=== PATIENT | female | born 1960 | race Caucasian/White ===

== ENCOUNTER 2021-02-28 12:09 | Inpatient (IN) | payer MEDICARE ==
[~2021-02-28] VITALS: Ht 157.5 cm; Wt 54.0 kg
[2021-02-28] VITALS (17 sets, daily range): BP systolic 120–191; BP diastolic 56–77
[2021-02-28 12:30] LABS: BASOPHILS % (AUTO) 0.2 % (0.0-5.0); HEMATOCRIT 27.8 % (36-48); LYMPHOCYTES % (AUTO) 9.3 % (21.0-51.0); MEAN CORPUSCULAR HEMOGLOBIN 37.2 pg (27.0-33.0); MEAN CORPUSCULAR HGB CONC 33.8 g/dL (32.0-36.0); MEAN CORPUSCULAR VOLUME 109.9 fL (79-99); MONOCYTES % (AUTO) 9.3 % (3.0-13.0); NEUTROPHILS % (AUTO) 80.6 % (40.0-77.0); PLATELET COUNT (AUTO) 76 K/uL (130-400); RED BLOOD CELL COUNT(AUTO) 2.53 MIL/uL (4.00-5.50); RED CELL DISTRIBUTION WIDTH 11.9 % (11.0-15.5); WHITE BLOOD COUNT (AUTO) 8.5 K/uL (4.8-10.8)
[2021-02-28] MEDS ORDERED: MIDAZOLAM 50MG-0.9% NS 50ML 50 ML IV SCH (12:30)
[2021-02-28] MEDS ORDERED: MIDAZOLAM 100MG-0.9% NS 100ML 100 ML IV SCH (12:30)
[2021-02-28] MEDS ORDERED: FENTANYL 2500MCG+NS 250ML 250 ML IV SCH (12:30)
[2021-02-28] MEDS ORDERED: FENTANYL 1000MCG+NS 100ML 100 ML IV SCH (12:30)
[2021-02-28 12:48] LABS: CREATININE 1.3 mg/dL (0.5-1.5); POTASSIUM 3.5 mmol/L (3.5-5.1)
[2021-02-28 12:52] LABS: ALBUMIN 3.8 g/dL (3.5-5.0)
[2021-02-28] MEDS ORDERED: OMEP40CA21 PO (12:55)
[2021-02-28] MEDS ORDERED: METH-812 PO (12:55)
[2021-02-28] MEDS ORDERED: MONT-39 PO (12:55)
[2021-02-28] MEDS ORDERED: TRAZ150T79 PO (12:55)
[2021-02-28] MEDS ORDERED: LAMO200T10 PO (12:55)
[2021-02-28] MEDS ORDERED: GABA300C PO (12:55)
[2021-02-28] MEDS ORDERED: DILT180C86 PO (12:55)
[2021-02-28] MEDS ORDERED: HYDR-4068 PO (12:55)
[2021-02-28] MEDS ORDERED: LEVO88CA4 PO (12:55)
[2021-02-28 12:59] LABS: ABG BASE EXCESS -0.7 mmol/L (-2.0-3.0); ABG OXYGEN SATURATION 99.8 % (95.0-99.0); ABG PCO2 31 mmHg (32-45)
[2021-02-28 13:46] LABS: ERYTHROCYTE SEDIMENTATION RATE 41 MM/HR (0-30)
[2021-02-28 13:55] LABS: BILIRUBIN,DIRECT 0.9 mg/dL (0.0-0.3); BILIRUBIN,TOTAL 1.8 mg/dL (0.2-1.0); CRP QUANTITATIVE 66.9 mg/L (0.00-9.0); TOTAL PROTEIN, SERUM 7.8 g/dL (6.0-8.3)
[2021-02-28] MEDS ORDERED: 0.9%NACL 1000ML 1,000 ML IV ONE ×3 (14:00→16:30)
[2021-02-28] MEDS ORDERED: NOREPINEPHRIN 4MG/NS 250ML 250 ML IV SCH (14:00)
[2021-02-28] MEDS ORDERED: IOHEXOL-350 75 ML VIAL IV ONE (14:35)
[2021-02-28] MEDS ORDERED: MANNITOL 25% 50ML VIAL ONE ×2 (16:18→16:22)
[2021-02-28] MEDS ORDERED: MANNITOL 25% 50ML VIAL IV SCH (16:30)
[2021-02-28] MEDS ORDERED: CEFAZOLIN SODIUM 1 GM VIAL ONE ×3 (16:43→17:55)
[2021-02-28 16:44] LABS: INR 1.17 (0.85-1.15); PROTHROMBIN TIME 12.6 SEC (9.6-11.6)
[2021-02-28] MEDS ORDERED: 0.9%NACL 100ML 100 ML ONE (16:44)
[2021-02-28 16:45] LABS: PARTIAL THROMBOPLASTIN TIME 21.7 SEC (26.3-35.5)
[2021-02-28] MEDS ORDERED: THROMBIN-JMI 20000 UNIT KIT TP ONE (16:45)
[2021-02-28] MEDS ORDERED: ROCURONIUM 10MG/1ML SYR 10 MG/ML ML ONE ×2 (16:48→17:17)
[2021-02-28] MEDS ORDERED: MIDAZOLAM HCL 1 MG/ML 2ML VIAL ONE (16:48)
[2021-02-28] MEDS ORDERED: PROPOFOL 10 MG/ML 20ML VIAL IV ONE (16:48)
[2021-02-28] MEDS ORDERED: BUPIVACAINE/EPI/PF 0.25% 30ML VIAL IJ ONE (17:14)
[2021-02-28] MEDS ORDERED: DEXAMETHASONE SOD PHOSPHATE 10MG/ML 1ML VIAL ONE (17:18)
[2021-02-28] MEDS ORDERED: ALBUMIN (HUMAN) 25% 150 ML IV ONE (17:18)
[2021-02-28] MEDS ORDERED: FENTANYL CITRATE PF 50 MCG/1 ML 2ML VIAL ONE (17:23)
[2021-02-28] MEDS ORDERED: MANNITOL 20% 500ML BAG 500 ML IV ONE (17:54)
[2021-02-28] MEDS ORDERED: FAMOTIDINE 20MG VIAL IV SCH (19:21)
[2021-02-28] MEDS ORDERED: ONDANSETRON 4MG INJ IV PRN (19:30)
[2021-02-28] MEDS ORDERED: PHARMACY COMMUNICATION MISC SCH (20:30)
[2021-02-28] MEDS ORDERED: ACETAMINOPHEN 325 MG TAB PO PRN ×2 (21:00)
[2021-02-28] MEDS ORDERED: COMPOUND IV MISC 1 EACH IVSOLN MISC PRN (21:00)
[2021-02-28] MEDS ORDERED: SODIUM CHLORIDE 3% 500 ML IV ONE (21:00)
[2021-02-28] MEDS: LAMOTRIGINE 25 MG TAB PO SCH (22:22)
[2021-02-28] MEDS: LEVETIRACETAM 500 MG in 0.9%NACL 100ML 100 ML IV SCH (22:22)
[2021-02-28] MEDS: INSULIN HUMULIN R 100 UNIT/ML 3ML SQ SCH (23:12)
[2021-03-01] VITALS (78 sets, daily range): BP systolic 80–163; BP diastolic 44–101
[2021-03-01 01:06] LABS: MAGNESIUM 1.7 mg/dL (1.80-2.40)
[2021-03-01] MEDS ORDERED: PHENYLEPHRINE HCL 10 MG/ML 1ML VIAL IV ONE (02:51)
[2021-03-01] MEDS ORDERED: NOREPINEPHRIN 4MG/NS 250ML 250 ML IV ONE ×2 (02:58→21:01)
[2021-03-01] MEDS ORDERED: 0.9%NACL 1000ML 1,000 ML IV SCH (03:00)
[2021-03-01] MEDS ORDERED: VASOPRESSIN 40 UNITS in 0.9%NACL 50ML 40 ML IV SCH (03:00)
[2021-03-01] MEDS ORDERED: PHENYLEPHRINE HCL 50 MG in 0.9% NACL 250ML 250 ML IV PRN (03:00)
[2021-03-01] MEDS: 0.9%NACL 1000ML 1,000 ML IV SCH ×2 (03:00→15:48)
[2021-03-01 03:33] LABS: BASOPHILS % (AUTO) 0.1 % (0.0-5.0); EOSINOPHILS % (AUTO) 1.6 % (0.0-8.0); HEMATOCRIT 21.4 % (36-48); LYMPHOCYTES % (AUTO) 4.6 % (21.0-51.0); MEAN CORPUSCULAR HEMOGLOBIN 36.6 pg (27.0-33.0); MEAN CORPUSCULAR HGB CONC 33.2 g/dL (32.0-36.0); MEAN CORPUSCULAR VOLUME 110.3 fL (79-99); MONOCYTES % (AUTO) 5.8 % (3.0-13.0); NEUTROPHILS % (AUTO) 87.5 % (40.0-77.0); PLATELET COUNT (AUTO) 107 K/uL (130-400); RED BLOOD CELL COUNT(AUTO) 1.94 MIL/uL (4.00-5.50); RED CELL DISTRIBUTION WIDTH 12.3 % (11.0-15.5)
[2021-03-01 03:42] LABS: INR 1.17 (0.85-1.15); PROTHROMBIN TIME 12.6 SEC (9.6-11.6)
[2021-03-01 03:53] LABS: ALBUMIN 3.6 g/dL (3.5-5.0); BILIRUBIN,TOTAL 1.5 mg/dL (0.2-1.0); CREATININE 1.4 mg/dL (0.5-1.5); MAGNESIUM 2.8 mg/dL (1.80-2.40); POTASSIUM 3.9 mmol/L (3.5-5.1); THYROID STIMULATING HORMONE 1.15 uIU/mL (0.36-3.74); TOTAL PROTEIN, SERUM 6.8 g/dL (6.0-8.3)
[2021-03-01] MEDS ORDERED: 0.9%NACL 100ML 100 ML ONE (04:10)
[2021-03-01] MEDS: LEVETIRACETAM 500 MG in 0.9%NACL 100ML 100 ML IV SCH ×3 (05:14→21:58)
[2021-03-01] MEDS: INSULIN HUMULIN R 100 UNIT/ML 3ML SQ SCH ×3 (05:28→18:00)
[2021-03-01] MEDS ORDERED: LEVOTHYROXINE 88 MCG TABLET PO SCH (06:30)
[2021-03-01 09:12] LABS: HEMATOCRIT 26.7 % (36-48)
[2021-03-01] MEDS: LAMOTRIGINE 25 MG TAB PO SCH ×2 (09:34→21:58)
[2021-03-01] MEDS: PANTOPRAZOLE 40 MG/VIAL IVP SCH (09:34)
[2021-03-01] MEDS ORDERED: DEXTROSE 5%-WATER 1,000 ML IV ONE (20:58)
[2021-03-01] MEDS: DEXTROSE 5%-WATER 1,000 ML IV SCH (21:55)
[2021-03-02] VITALS (115 sets, daily range): BP systolic 86–169; BP diastolic 42–85
[2021-03-02] MEDS ORDERED: NOREPINEPHRIN 4MG/NS 250ML 250 ML IV ONE ×2 (02:02→19:24)
[2021-03-02 04:28] LABS: BILIRUBIN,TOTAL 1.2 mg/dL (0.2-1.0); CREATININE 1.3 mg/dL (0.5-1.5); POTASSIUM 3.6 mmol/L (3.5-5.1); TOTAL PROTEIN, SERUM 6.5 g/dL (6.0-8.3)
[2021-03-02 04:30] LABS: BASOPHILS % (AUTO) 0.3 % (0.0-5.0); EOSINOPHILS % (AUTO) 0.2 % (0.0-8.0); HEMATOCRIT 25.9 % (36-48); LYMPHOCYTES % (AUTO) 25.5 % (21.0-51.0); MEAN CORPUSCULAR HEMOGLOBIN 34.2 pg (27.0-33.0); MEAN CORPUSCULAR HGB CONC 31.7 g/dL (32.0-36.0); MEAN CORPUSCULAR VOLUME 107.9 fL (79-99); MONOCYTES % (AUTO) 8.4 % (3.0-13.0); NEUTROPHILS % (AUTO) 63.5 % (40.0-77.0); PLATELET COUNT (AUTO) 122 K/uL (130-400); WHITE BLOOD COUNT (AUTO) 9.2 K/uL (4.8-10.8)
[2021-03-02] MEDS: INSULIN HUMULIN R 100 UNIT/ML 3ML SQ SCH ×4 (05:08→15:50)
[2021-03-02] MEDS: LEVOTHYROXINE 100MCG VIAL IV SCH (06:17)
[2021-03-02] MEDS: DEXTROSE 5%-WATER 1,000 ML IV SCH ×3 (06:41→23:05)
[2021-03-02] MEDS: LAMOTRIGINE 25 MG TAB PO SCH ×2 (08:30→20:30)
[2021-03-02] MEDS: PANTOPRAZOLE 40 MG/VIAL IVP SCH (09:53)
[2021-03-02] MEDS: FOLIC ACID 5 MG/ML VIAL IV SCH (09:53)
[2021-03-02] MEDS: LEVETIRACETAM 500 MG in 0.9%NACL 100ML 100 ML IV SCH ×2 (09:53→22:10)
[2021-03-02] MEDS: THIAMINE HCL 100 MG/ML 2ML VIAL IVP SCH ×2 (09:53→21:51)
[2021-03-02 18:39] LABS: BASOPHILS % (AUTO) 0.5 % (0.0-5.0); EOSINOPHILS % (AUTO) 2.2 % (0.0-8.0); HEMATOCRIT 22.8 % (36-48); LYMPHOCYTES % (AUTO) 41.7 % (21.0-51.0); MEAN CORPUSCULAR HEMOGLOBIN 33.2 pg (27.0-33.0); MEAN CORPUSCULAR HGB CONC 31.1 g/dL (32.0-36.0); MEAN CORPUSCULAR VOLUME 106.5 fL (79-99); MONOCYTES % (AUTO) 7.1 % (3.0-13.0); NEUTROPHILS % (AUTO) 45.6 % (40.0-77.0); PLATELET COUNT (AUTO) 86 K/uL (130-400); RED BLOOD CELL COUNT(AUTO) 2.14 MIL/uL (4.00-5.50); WHITE BLOOD COUNT (AUTO) 7.6 K/uL (4.8-10.8)
[2021-03-02 18:53] LABS: INR 1.19 (0.85-1.15); PROTHROMBIN TIME 12.8 SEC (9.6-11.6)
[2021-03-02 18:55] LABS: HEMOGLOBIN A1C 4.7 % (4.0-6.0)
[2021-03-02 19:02] LABS: ALBUMIN 2.6 g/dL (3.5-5.0); BILIRUBIN,DIRECT 0.7 mg/dL (0.0-0.3); BILIRUBIN,TOTAL 1.2 mg/dL (0.2-1.0); CREATININE 1.1 mg/dL (0.5-1.5); MAGNESIUM 1.8 mg/dL (1.80-2.40); PHOSPHORUS 0.9 mg/dL (2.5-4.9); TOTAL PROTEIN, SERUM 5.8 g/dL (6.0-8.3)
[2021-03-02 19:07] LABS: POTASSIUM 2.8 mmol/L (3.5-5.1)
[2021-03-02 19:20] LABS: APPEARANCE,URINE Clear (CLEAR); BILIRUBIN,URINE Negative (NEGATIVE); COLOR,URINE Dark Yellow (YELLOW); GLUCOSE, URINE (UA) Negative (NEGATIVE); KETONES,URINE Negative (NEGATIVE); LEUKOCYTE ESTERASE ,URINE Negative (NEGATIVE); NITRATE,URINE Negative (NEGATIVE); OCCULT BLOOD,URINE Negative (NEGATIVE); PROTEIN,URINE POS 1+ mg/dL (NEGATIVE)
[2021-03-02] MEDS ORDERED: VANCOMYCIN 1G VIAL IVPB SCH (19:30)
[2021-03-02 19:42] LABS: BACTERIA,URINE Rare /HPF (None Seen); MUCUS,URINE Rare LPF (None Seen); SQUAMOUS EPITHELIAL CELL,UR Rare /HPF (0-2); WBC,URINE 0-1 /HPF (0-1)
[2021-03-02 20:08] LABS: ABG BASE EXCESS 3.9 mmol/L (-2.0-3.0); ABG HCO3 27.2 mmol/L (21.0-28.0); ABG OXYGEN SATURATION 99.9 % (95.0-99.0); ABG PCO2 37 mmHg (32-45)
[2021-03-02] MEDS ORDERED: POTASSIUM CHLORIDE 20MEQ/100ML 100 ML IV ONE (21:03)
[2021-03-02] MEDS ORDERED: LIDOCAINE HCL-MPF 1% 2ML VIAL IV PRN (21:30)
[2021-03-02] MEDS: CEFEPIME HCL 2 GM VIAL IVP SCH (21:50)
[2021-03-02] MEDS: VANCOMYCIN KIT 1 GM/250 ML IV.KIT IV SCH (21:50)
[2021-03-02] MEDS: METRONIDAZOLE 500 MG TABLET PO SCH (21:51)
[2021-03-02] MEDS ORDERED: METRONIDAZOLE 500MG/100ML BAG 100 ML IVPB SCH (22:00)
[2021-03-02] MEDS: POTASSIUM CHLORIDE 20MEQ/100ML 100 ML IV PRN (22:31)
[2021-03-03] VITALS (139 sets, daily range): BP systolic 71–207; BP diastolic 37–117
[2021-03-03] MEDS: INSULIN HUMULIN R 100 UNIT/ML 3ML SQ SCH ×4 (00:08→19:00)
[2021-03-03 00:14] LABS: BASOPHILS % (AUTO) 0.6 % (0.0-5.0); EOSINOPHILS % (AUTO) 2.2 % (0.0-8.0); LYMPHOCYTES % (AUTO) 41.8 % (21.0-51.0); MEAN CORPUSCULAR HEMOGLOBIN 33.2 pg (27.0-33.0); MEAN CORPUSCULAR HGB CONC 31.9 g/dL (32.0-36.0); MONOCYTES % (AUTO) 7.5 % (3.0-13.0); NEUTROPHILS % (AUTO) 40.1 % (40.0-77.0); PLATELET COUNT (AUTO) 82 K/uL (130-400); RED BLOOD CELL COUNT(AUTO) 2.02 MIL/uL (4.00-5.50); RED CELL DISTRIBUTION WIDTH 24.5 % (11.0-15.5); WHITE BLOOD COUNT (AUTO) 6.9 K/uL (4.8-10.8)
[2021-03-03 00:21] LABS: APPEARANCE,URINE Clear (CLEAR); BILIRUBIN,URINE Negative (NEGATIVE); COLOR,URINE Yellow (YELLOW); GLUCOSE, URINE (UA) Negative (NEGATIVE); KETONES,URINE Negative (NEGATIVE); LEUKOCYTE ESTERASE ,URINE Trace (NEGATIVE); NITRATE,URINE Negative (NEGATIVE); OCCULT BLOOD,URINE Negative (NEGATIVE); PH,URINE 6.5 (5.0-8.0); PROTEIN,URINE Trace mg/dL (NEGATIVE)
[2021-03-03 00:21] LABS: INR 1.22 (0.85-1.15); PROTHROMBIN TIME 13.1 SEC (9.6-11.6)
[2021-03-03 00:22] LABS: PARTIAL THROMBOPLASTIN TIME 29.5 SEC (26.3-35.5)
[2021-03-03 00:34] LABS: ALBUMIN 2.3 g/dL (3.5-5.0); BILIRUBIN,DIRECT 0.9 mg/dL (0.0-0.3); BILIRUBIN,TOTAL 1.3 mg/dL (0.2-1.0); CREATININE 1.1 mg/dL (0.5-1.5); MAGNESIUM 1.6 mg/dL (1.80-2.40); PHOSPHORUS 0.7 mg/dL (2.5-4.9); POTASSIUM 3.6 mmol/L (3.5-5.1); TOTAL PROTEIN, SERUM 5.4 g/dL (6.0-8.3)
[2021-03-03 00:44] LABS: BACTERIA,URINE None Seen /HPF (None Seen); MUCUS,URINE Rare LPF (None Seen); RBC,URINE None Seen /HPF (0-1); SQUAMOUS EPITHELIAL CELL,UR Rare /HPF (0-2); WBC,URINE 0-1 /HPF (0-1)
[2021-03-03] MEDS: POTASSIUM CHLORIDE 20MEQ/100ML 100 ML IV PRN ×4 (00:45→19:31)
[2021-03-03] MEDS: CEFEPIME HCL 2 GM VIAL IVP SCH ×3 (03:08→19:30)
[2021-03-03] MEDS: DEXTROSE 5%-WATER 1,000 ML IV SCH ×5 (03:16→12:39)
[2021-03-03] MEDS: LEVOTHYROXINE 100MCG VIAL IV SCH (05:02)
[2021-03-03] MEDS: METRONIDAZOLE 500 MG TABLET PO SCH ×2 (05:02→12:33)
[2021-03-03 05:59] LABS: BASOPHILS % (AUTO) 0.3 % (0.0-5.0); EOSINOPHILS % (AUTO) 2.2 % (0.0-8.0); HEMATOCRIT 21.5 % (36-48); MEAN CORPUSCULAR HEMOGLOBIN 34.6 pg (27.0-33.0); MEAN CORPUSCULAR VOLUME 104.9 fL (79-99); MONOCYTES % (AUTO) 8.6 % (3.0-13.0); NEUTROPHILS % (AUTO) 50.8 % (40.0-77.0); NUCLEATED RED BLOOD CELLS 0.3 % (0.0-0.19); PLATELET COUNT (AUTO) 79 K/uL (130-400); RED BLOOD CELL COUNT(AUTO) 2.05 MIL/uL (4.00-5.50); WHITE BLOOD COUNT (AUTO) 6.3 K/uL (4.8-10.8)
[2021-03-03 06:09] LABS: APPEARANCE,URINE Clear (CLEAR); BILIRUBIN,URINE Negative (NEGATIVE); COLOR,URINE Yellow (YELLOW); GLUCOSE, URINE (UA) 500 mg/dL (NEGATIVE); KETONES,URINE Negative (NEGATIVE); LEUKOCYTE ESTERASE ,URINE Small (NEGATIVE); NITRATE,URINE Negative (NEGATIVE); OCCULT BLOOD,URINE Negative (NEGATIVE); PH,URINE 6.5 (5.0-8.0); PROTEIN,URINE Negative (NEGATIVE)
[2021-03-03 06:09] LABS: INR 1.27 (0.85-1.15); PROTHROMBIN TIME 13.5 SEC (9.6-11.6)
[2021-03-03 06:10] LABS: PARTIAL THROMBOPLASTIN TIME 30.9 SEC (26.3-35.5)
[2021-03-03 06:13] LABS: ALBUMIN 2.3 g/dL (3.5-5.0); BILIRUBIN,DIRECT 0.9 mg/dL (0.0-0.3); BILIRUBIN,TOTAL 1.4 mg/dL (0.2-1.0); CREATININE 0.9 mg/dL (0.5-1.5); MAGNESIUM 1.4 mg/dL (1.80-2.40); PHOSPHORUS 0.7 mg/dL (2.5-4.9); TOTAL PROTEIN, SERUM 5.2 g/dL (6.0-8.3)
[2021-03-03 06:18] LABS: BACTERIA,URINE None Seen /HPF (None Seen); RBC,URINE 0-1 /HPF (0-1); SQUAMOUS EPITHELIAL CELL,UR Rare /HPF (0-2); YEAST,URINE BUDDING None Seen /HPF (None Seen)
[2021-03-03] MEDS: PANTOPRAZOLE 40 MG/VIAL IVP SCH (07:41)
[2021-03-03] MEDS: THIAMINE HCL 100 MG/ML 2ML VIAL IVP SCH (07:42)
[2021-03-03] MEDS: LAMOTRIGINE 25 MG TAB PO SCH (07:42)
[2021-03-03] MEDS: VANCOMYCIN KIT 1 GM/250 ML IV.KIT IV SCH (07:43)
[2021-03-03] MEDS: LEVETIRACETAM 500 MG in 0.9%NACL 100ML 100 ML IV SCH (08:07)
[2021-03-03] MEDS: FOLIC ACID 5 MG/ML VIAL IV SCH (09:15)
[2021-03-03] MEDS ORDERED: NOREPINEPHRIN 4MG/NS 250ML 250 ML IV SCH (10:00)
[2021-03-03] MEDS ORDERED: MAGNESIUM 2GM PREMIX 50ML 50 ML IV SCH (10:00)
[2021-03-03] MEDS ORDERED: MAGNESIUM 2GM PREMIX 50ML 50 ML IV ONE (10:09)
[2021-03-03] MEDS ORDERED: SODIUM BICARB 50MEQ 50ML VIAL 150 ML ONE (10:45)
[2021-03-03] MEDS ORDERED: SODIUM BICARB 50MEQ 50ML VIAL IV SCH (10:54)
[2021-03-03] MEDS ORDERED: [UNRECOGNIZED DRUG - OTHER] IV SCH ×2 (11:00)
[2021-03-03] MEDS ORDERED: DEXTROSE 5% IV SCH ×2 (11:00)
[2021-03-03] MEDS ORDERED: NOREPINEPHRIN 4MG/NS 250ML 250 ML IV PRN (11:00)
[2021-03-03 11:52] LABS: ABG BASE EXCESS 2.3 mmol/L (-2.0-3.0); ABG HCO3 26.6 mmol/L (21.0-28.0); ABG OXYGEN SATURATION 95.2 % (95.0-99.0); ABG PCO2 40 mmHg (32-45)
[2021-03-03 12:02] LABS: BASOPHILS % (AUTO) 0.4 % (0.0-5.0); EOSINOPHILS % (AUTO) 2.5 % (0.0-8.0); LYMPHOCYTES % (AUTO) 36.8 % (21.0-51.0); MEAN CORPUSCULAR HEMOGLOBIN 33.5 pg (27.0-33.0); MEAN CORPUSCULAR HGB CONC 32.2 g/dL (32.0-36.0); MONOCYTES % (AUTO) 6.5 % (3.0-13.0); NEUTROPHILS % (AUTO) 52.8 % (40.0-77.0); PLATELET COUNT (AUTO) 68 K/uL (130-400); RED CELL DISTRIBUTION WIDTH 22.9 % (11.0-15.5); WHITE BLOOD COUNT (AUTO) 5.2 K/uL (4.8-10.8)
[2021-03-03 12:11] LABS: INR 1.22 (0.85-1.15); PROTHROMBIN TIME 13.1 SEC (9.6-11.6)
[2021-03-03 12:13] LABS: PARTIAL THROMBOPLASTIN TIME 32.5 SEC (26.3-35.5)
[2021-03-03 12:13] LABS: ABG BASE EXCESS -4.3 mmol/L (-2.0-3.0); ABG HCO3 23.1 mmol/L (21.0-28.0); ABG OXYGEN SATURATION 90.8 % (95.0-99.0); ABG PCO2 55 mmHg (32-45)
[2021-03-03 12:23] LABS: BILIRUBIN,DIRECT 0.9 mg/dL (0.0-0.3); BILIRUBIN,TOTAL 1.3 mg/dL (0.2-1.0); MAGNESIUM 1.9 mg/dL (1.80-2.40); PHOSPHORUS 1.6 mg/dL (2.5-4.9)
[2021-03-03 12:28] LABS: HEMATOCRIT 20.8 % (36-48)
[2021-03-03] MEDS ORDERED: 1/2 NS 1000ML 1,000 ML IV ONE (13:07)
[2021-03-03] MEDS ORDERED: 1/2 NS 1000ML 1,000 ML IV SCH (13:30)
[2021-03-03] MEDS ORDERED: WATER IV SCH (14:30)
[2021-03-03] MEDS ORDERED: SODIUM BICARB 8.4% IV SCH (14:30)
[2021-03-03] MEDS ORDERED: SYRING IV SCH (14:30)
[2021-03-03 14:32] LABS: ABG BASE EXCESS -0.4 mmol/L (-2.0-3.0); ABG HCO3 27.6 mmol/L (21.0-28.0); ABG OXYGEN SATURATION 99.3 % (95.0-99.0); ABG PCO2 67 mmHg (32-45)
[2021-03-03 17:20] LABS: APPEARANCE,URINE Clear (CLEAR); BILIRUBIN,URINE Negative (NEGATIVE); COLOR,URINE Yellow (YELLOW); GLUCOSE, URINE (UA) >=1000 mg/dL (NEGATIVE); KETONES,URINE Negative (NEGATIVE); LEUKOCYTE ESTERASE ,URINE Moderate (NEGATIVE); NITRATE,URINE Negative (NEGATIVE); OCCULT BLOOD,URINE Negative (NEGATIVE); PH,URINE 7.5 (5.0-8.0); PROTEIN,URINE Negative (NEGATIVE)
[2021-03-03 17:32] LABS: BACTERIA,URINE Few /HPF (None Seen); MUCUS,URINE Few LPF (None Seen); SQUAMOUS EPITHELIAL CELL,UR 0-2 /HPF (0-2)
[2021-03-03 18:39] LABS: BASOPHILS % (AUTO) 1.1 % (0.0-5.0); EOSINOPHILS % (AUTO) 2.1 % (0.0-8.0); HEMATOCRIT 32.1 % (36-48); LYMPHOCYTES % (AUTO) 31.2 % (21.0-51.0); MEAN CORPUSCULAR HEMOGLOBIN 32.4 pg (27.0-33.0); MEAN CORPUSCULAR HGB CONC 33.3 g/dL (32.0-36.0); MEAN CORPUSCULAR VOLUME 97.3 fL (79-99); MONOCYTES % (AUTO) 11.2 % (3.0-13.0); NEUTROPHILS % (AUTO) 53.1 % (40.0-77.0); NUCLEATED RED BLOOD CELLS 0.4 % (0.0-0.19); PLATELET COUNT (AUTO) 89 K/uL (130-400); RED CELL DISTRIBUTION WIDTH 20.5 % (11.0-15.5); WHITE BLOOD COUNT (AUTO) 7.6 K/uL (4.8-10.8)
[2021-03-03 18:59] LABS: INR 1.22 (0.85-1.15); PROTHROMBIN TIME 13.1 SEC (9.6-11.6)
[2021-03-03 19:01] LABS: PARTIAL THROMBOPLASTIN TIME 30.2 SEC (26.3-35.5)
[2021-03-03 19:17] LABS: ALBUMIN 2.2 g/dL (3.5-5.0); BILIRUBIN,DIRECT 1.2 mg/dL (0.0-0.3); BILIRUBIN,TOTAL 1.7 mg/dL (0.2-1.0); CREATININE 0.8 mg/dL (0.5-1.5); MAGNESIUM 1.9 mg/dL (1.80-2.40); PHOSPHORUS 1.9 mg/dL (2.5-4.9); POTASSIUM 3.1 mmol/L (3.5-5.1); TOTAL PROTEIN, SERUM 5.4 g/dL (6.0-8.3)
== END 2021-03-03 14:31 | DRG 25 ==
LOC: EDH 12:09 → 2CH 19:07
PROVIDERS: ADMIT Internal Medicine; ATTEND Internal Medicine
PROC: 5A1945Z Respiratory Ventilation, 24-96 Consecutive Hours (ICD-10-PCS; 2021-02-28)
PROC: 0BH17EZ Insertion of Endotracheal Airway into Trachea, Via Natural or Artificial Opening (ICD-10-PCS; 2021-02-28)
PROC: 00C40ZZ Extirpation of Matter from Intracranial Subdural Space, Open Approach (ICD-10-PCS; principal; 2021-02-28 16:54)
PROC: 30233R1 Transfusion of Nonautologous Platelets into Peripheral Vein, Percutaneous Approach (ICD-10-PCS; 2021-02-28 16:54)
PROC: 30233N1 Transfusion of Nonautologous Red Blood Cells into Peripheral Vein, Percutaneous Approach (ICD-10-PCS; 2021-03-01)
DX: S06.5X9A Traumatic subdural hemorrhage with loss of consciousness of unspecified duration, initial encounter (principal); J96.00 Acute respiratory failure, unspecified whether with hypoxia or hypercapnia; E23.2 Diabetes insipidus; D62 Acute posthemorrhagic anemia; N18.31 Chronic kidney disease, stage 3a; Z66 Do not resuscitate; F31.9 Bipolar disorder, unspecified; D69.6 Thrombocytopenia, unspecified; G93.2 Benign intracranial hypertension; Z20.822 Contact with and (suspected) exposure to COVID-19; K21.9 Gastro-esophageal reflux disease without esophagitis; E03.9 Hypothyroidism, unspecified; G89.4 Chronic pain syndrome; R40.2430 Glasgow coma scale score 3-8, unspecified time; E80.6 Other disorders of bilirubin metabolism; D69.59 Other secondary thrombocytopenia; F10.20 Alcohol dependence, uncomplicated; J44.9 Chronic obstructive pulmonary disease, unspecified; W06.XXXA Fall from bed, initial encounter; Y93.89 Activity, other specified; Y92.89 Other specified places as the place of occurrence of the external cause; Y99.8 Other external cause status; Z98.82 Breast implant status; Z79.899 Other long term (current) drug therapy
CPT/HCPCS: 36415; 36430; 36600; 70450; 71045; 71250; 71275; 74176; 78610; 80053; 80076; 81001; 82150; 82247; 82248; 82435; 82550; 82728; 82803; 82947; 82948; 82977; 83036; 83540; 83550; 83605; 83615; 83690; 83735; 84100; 84132; 84295; 84443; 84484; 85014; 85018; 85025; 85045; 85378; 85610; 85651; 85730; 86140; 86850; 86900; 86901; 86923; 87040; 87071; 87077; 87088; 87186; 87205; 87635; 87804; 93005; 94002; 94003; 99291; 99292; A9512; C1713; C9113; C9803; G0378; J0690; J0692; J1100; J1815; J1953; J2150; J2250; J2370; J2704; J3010; J3370; J3411; J3475; J3480; J3490; J7030; J7040; J7070; P9016; P9034; P9047; Q9967

== ENCOUNTER 2021-03-03 14:31 | Observation (INO) | payer OTHER ==
[~2021-03-03 14:31] MED LIST: DILT180C86 PO; GABA300C PO; HYDR-4068 PO; LAMO200T10 PO; LEVO88CA4 PO; METH-812 PO; MONT-39 PO; OMEP40CA21 PO; TRAZ150T79 PO
== END 2021-03-03 23:39 | disposition short-term general hospital (02) ==
LOC: 2CV 14:31
PROVIDERS: ADMIT Internal Medicine; ATTEND Internal Medicine
DX: S06.5X0A Traumatic subdural hemorrhage without loss of consciousness, initial encounter (principal); F31.9 Bipolar disorder, unspecified; E03.9 Hypothyroidism, unspecified; K21.9 Gastro-esophageal reflux disease without esophagitis; E23.2 Diabetes insipidus; D69.6 Thrombocytopenia, unspecified; E80.6 Other disorders of bilirubin metabolism; X58.XXXA Exposure to other specified factors, initial encounter; Y92.89 Other specified places as the place of occurrence of the external cause; Y93.89 Activity, other specified; Y99.8 Other external cause status
CPT/HCPCS: G0378 ×9